=== PATIENT | female | born 1965 | race Caucasian/White ===

== ENCOUNTER 2017-07-08 12:51 | Inpatient (IN) | payer OTHER ==
[~2017-07-08] VITALS: Ht 167.6 cm; Wt 78.1 kg
[~2017-07-08 12:51] MED LIST: ADVAIR 250-501 EACH; ADVAIR 250/501 DISK IH; ALBUTEROL2.5 MG/3 M IH; ATARAX,VISTARIL50 MG; ATARAX,VISTARIL50 MG PO; BISMATROL262 MG PO; BUSPAR15 MG; BUSPAR7.5 MG PO; CELEBREX200 MG PO; CLARITIN10 M1; CLARITIN10 MG PO; CLONIDINE HCL0.2 MG PO; DESYREL100 MG PO; DICLOFENAC SODI75 MG PO; DOXYCYCLINE HY100 M3 PO; FEOSOL325 MG PO; FIORICET 50-321 EAC1; FIORICET,ESG1 TABLET PO; FIORINAL 50-321 EACH PO; GABAPENTIN600 MG PO; GEODON80 MG; GEODON80 MG PO; HYDROXYZINE HCL50 MG PO; LORATADINE10 M2 PO; MIRALAX255 GM PO; MORPHINE SULFAT15 M1 PO; MORPHINE SULFAT15 MG PO; PROAIR HFA8.5 GM IH; PROMETHAZINE HC25 M1 PO; PROVENTIL,2.5 MG/3 M; SEROQUEL200 MG PO; SEROQUEL300 MG; SEROQUEL300 MG PO; SIMVASTATIN40 MG PO; SUMATRIPTAN SU100 MG PO; TEMAZEPAM30 MG PO; TIZANIDINE HCL4 MG PO; TOPAMAX50 MG PO; VENLAFAXINE HCL75 M3 PO; VENTOLIN HFA18 GM IH; ZANTAC150 M1; ZANTAC150 M1 PO; ZOCOR40 MG PO; ZOLOFT100 M1; ZOLOFT100 MG PO; ZOMIG5 M1; ZOMIG5 MG PO
[2017-07-08 13:48] LABS: EOSINOPHIL (%) 0.2 % (0-5); HEMATOCRIT 32.1 % (36.0-46.0); IMMATURE GRANULOCYTE (%) 0.7 % (0.0-0.7); INSTRUMENT ABS NEUTROPHIL CT 4.1 K/uL; LYMPHOCYTE COUNT 0.9 K/uL (1.0-2.8); MCH 28.8 PG (29.0-34.0); MCHC 32.7 G/DL (30.0-36.0); MCV 87.9 FL (83-99); MEAN PLAT.VOLUME 9.5 uM^3 (9.5-12.4); MONOCYTE (%) 6.6 % (3-12); MONOCYTE COUNT 0.4 K/uL (0-0.8); NEUTROPHIL (%) 75.6 % (45-76); NEUTROPHIL COUNT 4.1 K/uL (1.8-6.4); PLATELET COUNT 197 K/uL (156-360); RBC DIS.WIDTH-CV 14.1 % (11.8-14.6); RBC DIS.WIDTH-SD 45.3 % (39-53); RED BLOOD COUNT 3.65 M/uL (3.80-5.20); WHITE BLOOD COUNT 5.5 K/uL (4.1-10.2)
[2017-07-08 13:55] LABS: INTER. NORMALIZED RATIO 1.2; PROTHROMBIN TIME 13.7 SEC (10.2-12.9)
[2017-07-08 13:57] LABS: PTT 25.8 SEC (25-37)
[2017-07-08 13:58] LABS: CHLORIDE 94 mEq/L (99-109); MAGNESIUM 1.5 mg/dL (1.3-2.7); SODIUM 134 mEq/L (136-147)
[2017-07-08 14:00] LABS: GLUCOSE 103 mg/dL (70-99)
[2017-07-08 14:01] LABS: ANION GAP 11 MEQ/L (2-14)
[2017-07-08 14:03] LABS: SERUM ETHYL ALCOHOL < 10 mg/dL
[2017-07-08 14:04] LABS: GFR ESTIMATE (CALCULATED) > 59 mL/min/; UREA NITROGEN (BUN) 10 mg/dL (9-23)
[2017-07-08 14:11] LABS: TROP-I INTERPRETATION NEGATIVE; TROPONIN-I 0.02 ng/mL (0.0-0.30)
[2017-07-08 14:12] LABS: POINT-OF-CARE METER ID UU14100415
[2017-07-08 14:43] LABS: ADD MIUA? NO; BILIRUBIN NEGATIVE; BLOOD NEGATIVE; COLOR YELLOW ((YELLOW)); GLUCOSE (STRIP) NEGATIVE; KETONES NEGATIVE; LEUKOCYTES NEGATIVE; NITRITE NEGATIVE; PROTEIN (STRIP) NEGATIVE; SPECIFIC GRAVITY 1.006 (1.000-1.030); UCUL ADDED? NO
[2017-07-08 14:52] LABS: ADD MEDTOX COMMENT Y; AMPHETAMINE NEGATIVE (500 ng/mL); BARBITURATES NEGATIVE (200 ng/mL); BENZODIAZEPINES PRESUMPTIVE POSITIVE (150 ng/mL); COCAINE NEGATIVE (150 ng/mL); INTERNAL CONTROLS VALID? YES; METHADONE NEGATIVE (200 ng/mL); METHAMPHETAMINE NEGATIVE (500 ng/mL); OPIATES (MORPHINE) NEGATIVE (100 ng/mL); OXYCODONE NEGATIVE (100 ng/mL); PHENCYCLIDINE NEGATIVE (25 ng/mL); PROPOXYPHENE NEGATIVE (300 ng/mL); THC CANNABINOIDS NEGATIVE (50 ng/mL); TRICYCLIC ANTIDEPRESSANTS NEGATIVE (300 ng/mL)
[2017-07-08 16:01] LABS: BENZODIAZEPINES QUANT VALUE 0 NG/ML; BENZODIAZEPINES, URINE SCREEN Negative (200 ng/mL)
[2017-07-08 17:15] LABS: SALICYLATE < 5.0 MG/DL (15-30)
[2017-07-08 17:34] LABS: BASE EXCESS 9.2 mEq/L (-3 to +3); BICARBONATE 32.6 mEq/L (22-26); CARBOXY HGB 2.2 % (0-5); COMMENTS - BLOOD GASES A+C+; DEVICE RA; METHEMOGLOBIN 1.1 % (0-1.5); PCO2 39 mm Hg (35-45); PO2 69 mm Hg (80-100); SITE RR; TOTAL RESP RATE 12 resp/min; pH 7.53 (7.35-7.45)
[2017-07-08 17:50] LABS: TOTAL BILIRUBIN 0.7 mg/dL (0.0-1.0)
[2017-07-08 17:51] LABS: ALKALINE PHOSPHATASE 97 IU/L (3-129)
[2017-07-08 20:26] VITALS: BP 107/65
[2017-07-09] VITALS (7 sets, daily range): BP systolic 94–115; BP diastolic 55–75
[2017-07-09 01:08] LABS: TROP-I INTERPRETATION NEGATIVE; TROPONIN-I 0.01 ng/mL (0.0-0.30)
[2017-07-09 07:05] LABS: HEMATOCRIT 30.6 % (36.0-46.0); MCH 29.9 PG (29.0-34.0); MCHC 33.7 G/DL (30.0-36.0); MEAN PLAT.VOLUME 9.8 uM^3 (9.5-12.4); PLATELET COUNT 180 K/uL (156-360); RBC DIS.WIDTH-CV 14.3 % (11.8-14.6); RBC DIS.WIDTH-SD 46.5 % (39-53); RED BLOOD COUNT 3.44 M/uL (3.80-5.20); WHITE BLOOD COUNT 3.8 K/uL (4.1-10.2)
[2017-07-09 07:15] LABS: TROP-I INTERPRETATION NEGATIVE; TROPONIN-I 0.01 ng/mL (0.0-0.30)
[2017-07-09 07:43] LABS: ALKALINE PHOSPHATASE 81 IU/L (3-129); ANION GAP 7 MEQ/L (2-14); CHLORIDE 102 MEQ/L (99-109); GFR ESTIMATE (CALCULATED) > 59 mL/min/; GLUCOSE 106 mg/dL (70-99); MAGNESIUM 2.4 mg/dl (1.3-2.7); SAMPLE HEMOLYSIS CHECK 0; SAMPLE ICTERIC CHECK 0; SAMPLE LIPEMIA CHECK 0; SODIUM 136 MEQ/L (136-147); TOTAL BILIRUBIN 0.5 MG/DL (0.0-1.0); UREA NITROGEN (BUN) 10 mg/dL (9-23)
[2017-07-09 07:51] LABS: POTASSIUM 2.9 MEQ/L (3.7-5.4)
[2017-07-09] MEDS ORDERED: BUSPAR15 MG PO (11:17)
[2017-07-09] MEDS ORDERED: TOPAMAX100 MG PO (11:18)
[2017-07-09] MEDS ORDERED: GEODON80 MG PO (11:18)
[2017-07-09] MEDS ORDERED: OMEPRAZOLE40 M1 PO (11:19)
[2017-07-09] MEDS ORDERED: DELZICOL400 M1 PO (11:20)
[2017-07-09] MEDS ORDERED: PROMETHAZINE HC25 M1 PO (11:22)
[2017-07-09] MEDS ORDERED: PAROXETINE HCL30 MG PO (11:27)
[2017-07-09] MEDS ORDERED: LAMOTRIGINE100 MG PO (11:28)
[2017-07-09] MEDS ORDERED: LITHIUM CARBON300 MG PO (11:28)
[2017-07-09] MEDS ORDERED: TOPIRAMATE100 MG PO (11:31)
[2017-07-09] MEDS ORDERED: PRAZOSIN HCL1 MG PO (11:32)
[2017-07-09] MEDS ORDERED: MELOXICAM15 MG PO (11:33)
[2017-07-09] MEDS ORDERED: ATARAX,VISTARIL50 MG PO (11:34)
[2017-07-09] MEDS ORDERED: CETIRIZINE HCL10 M2 PO (11:35)
[2017-07-09] MEDS ORDERED: QUETIAPINE FUM300 MG PO (11:35)
[2017-07-09] MEDS ORDERED: ATORVASTATIN CA40 MG PO (11:35)
[2017-07-09] MEDS ORDERED: TIZANIDINE HCL4 MG PO (11:36)
[2017-07-09] MEDS ORDERED: ESZOPICLONE3 MG PO (11:38)
[2017-07-09] MEDS ORDERED: DESYREL100 MG PO (11:38)
[2017-07-09] MEDS ORDERED: MORPHINE SULFAT15 MG PO (11:39)
[2017-07-09] MEDS ORDERED: FLUTICASONE P15.8 ML BOTH NARES (11:39)
[2017-07-09] MEDS ORDERED: TEMAZEPAM30 MG PO (11:40)
[2017-07-09] MEDS ORDERED: MORPHINE SULFAT15 M1 PO (11:40)
[2017-07-09] MEDS ORDERED: ZOLMITRIPTAN5 MG PO (11:41)
[2017-07-09] MEDS ORDERED: VENTOLIN HFA18 GM IH (11:42)
[2017-07-09] MEDS ORDERED: ALBUTEROL0.63 MG/3 IH (11:48)
[2017-07-10 06:08] LABS: HEMATOCRIT 27.4 % (36.0-46.0); MCH 29.4 PG (29.0-34.0); MCHC 33.2 G/DL (30.0-36.0); MCV 88.7 FL (83-99); MEAN PLAT.VOLUME 9.6 uM^3 (9.5-12.4); PLATELET COUNT 159 K/uL (156-360); RBC DIS.WIDTH-CV 14.5 % (11.8-14.6); RBC DIS.WIDTH-SD 46.8 % (39-53); RED BLOOD COUNT 3.09 M/uL (3.80-5.20); WHITE BLOOD COUNT 3.3 K/uL (4.1-10.2)
[2017-07-10 06:39] LABS: ANION GAP 7 MEQ/L (2-14); CHLORIDE 101 MEQ/L (99-109); GFR ESTIMATE (CALCULATED) > 59 mL/min/; GLUCOSE 89 mg/dL (70-99); MAGNESIUM 1.8 mg/dl (1.3-2.7); POTASSIUM 3.1 MEQ/L (3.7-5.4); SAMPLE HEMOLYSIS CHECK 0; SAMPLE ICTERIC CHECK 0; SAMPLE LIPEMIA CHECK 0; SODIUM 135 MEQ/L (136-147); UREA NITROGEN (BUN) 7 mg/dL (9-23)
[2017-07-10 07:22] VITALS: BP 106/69
[2017-07-10 09:10] LABS: ADD MIUA? YES; BILIRUBIN NEGATIVE; BLOOD SMALL; COLOR YELLOW ((YELLOW)); GLUCOSE (STRIP) NEGATIVE; KETONES NEGATIVE; LEUKOCYTES MODERATE; NITRITE NEGATIVE; PROTEIN (STRIP) NEGATIVE; SPECIFIC GRAVITY 1.006 (1.000-1.030); UROBILINOGEN 0.2 MG/DL (0.2-1.0)
[2017-07-10 09:19] LABS: UR CREATININE CONCENTRATION 68.2 MG/DL
[2017-07-10 09:23] LABS: BACTERIA RARE /HPF; EPITHELIAL CELLS 1+ /HPF; MUCUS NONE SEEN /LPF
[2017-07-10 13:00] VITALS: BP 114/74
[2017-07-10 15:45] VITALS: BP 109/73
[2017-07-10 20:00] VITALS: BP 116/73
[2017-07-10 23:56] VITALS: BP 103/75
[2017-07-11 04:13] VITALS: BP 102/69
[2017-07-11 06:53] LABS: HEMATOCRIT 29.4 % (36.0-46.0); MCH 28.7 PG (29.0-34.0); MCHC 31.6 G/DL (30.0-36.0); MCV 90.7 FL (83-99); MEAN PLAT.VOLUME 8.9 uM^3 (9.5-12.4); PLATELET COUNT 162 K/uL (156-360); RBC DIS.WIDTH-CV 14.6 % (11.8-14.6); RBC DIS.WIDTH-SD 48.8 % (39-53); RED BLOOD COUNT 3.24 M/uL (3.80-5.20); WHITE BLOOD COUNT 3.1 K/uL (4.1-10.2)
[2017-07-11 07:17] LABS: ANION GAP 3 MEQ/L (2-14); CHLORIDE 101 MEQ/L (99-109); GFR ESTIMATE (CALCULATED) > 59 mL/min/; GLUCOSE 78 mg/dL (70-99); POTASSIUM 4.6 MEQ/L (3.7-5.4); SAMPLE HEMOLYSIS CHECK 0; SAMPLE ICTERIC CHECK 0; SAMPLE LIPEMIA CHECK 0; SODIUM 134 MEQ/L (136-147); UREA NITROGEN (BUN) 7 mg/dL (9-23)
[2017-07-11 08:24] VITALS: BP 102/67
[2017-07-11 11:54] VITALS: BP 113/73
== END 2017-07-11 14:02 | disposition home or self-care (01) | DRG 917 ==
LOC: EME 12:51 → EDOF 16:47 → 5SOUTH 16:47 → ENRESERV 16:51 → 5SOUTH 19:51
PROVIDERS: Emergency Medicine; Internal Medicine
DX: T42.4X1A Poisoning by benzodiazepines, accidental (unintentional), initial encounter (principal); G92 Toxic encephalopathy; E87.3 Alkalosis; E87.6 Hypokalemia; D64.9 Anemia, unspecified; F31.81 Bipolar II disorder; F60.3 Borderline personality disorder; G89.29 Other chronic pain; M54.9 Dorsalgia, unspecified; J45.909 Unspecified asthma, uncomplicated; F17.200 Nicotine dependence, unspecified, uncomplicated; R29.6 Repeated falls; Z91.81 History of falling; Z96.653 Presence of artificial knee joint, bilateral; F13.10 Sedative, hypnotic or anxiolytic abuse, uncomplicated; K52.831 Collagenous colitis
CPT/HCPCS: 36600; 70450; 71010; 80048; 80053; 81003; 82140; 82436; 82570; 82803; 82948; 83605; 83735; 84132 91; 84133; 84156; 84300; 84484; 84999; 85025; 85027; 85610; 85730; 87040; 93005; 99281; 99285; G0480; J1650; J2310; J3475; J3480; J7030